=== PATIENT | male | born 1990 | race Caucasian/White ===

== ENCOUNTER 2025-06-15 13:58 | Emergency (ER) | payer BC, SELFPAY ==
[2025-06-15 14:00] VITALS: BP 146/101
--- NOTE | 2025-06-15 15:18 | ED.GENMED ---
History of Present Illness
General
Chief Complaint: Crisis Evaluation
Source: patient
Exam Limitations: none
Time Seen by Provider: 06/15/25 14:10
History of Present Illness
History of Present Illness:
34-year-old male presents anxious. Some depression. Significant situational component. Getting . Had to sell his house. Had to give up his dog. [place]oved to the city. Broke up with his girlfriend this morning. No true suicidal ideation
or plan. Fleeting thoughts when he is extra anxious. Has an appointment Tuesday with psychiatry
Past History
Past History
ED Past Medical History: None
Review of Systems
Review of Systems
All Other Systems: Not applicable
Respiratory: Reports no symptoms
Cardiac: Reports no symptoms
Phy Exam
Physical Exam
Physical Exam:
GENERAL: Alert and oriented in no apparent distress
EYE: Orbits normal.
NECK: Supple, no significant adenopathy.
ENT: Pharynx without erythema
CARDIAC: Regular rate and rhythm without any obvious murmurs.
LUNGS: Clear breath sounds,normal
ABDOMEN: Soft, without focal tenderness or distention
NEUROLOGICAL: Alert and oriented , grossly non-focal
SKIN: Warm and dry, no rash or lesion, no discoloration, skin intact.
MUSCULOSKELETAL: No edema,no deformity.Good color
PSYCH: Normal and appropriate interaction.
Course
Orders/Labs/Results
Orders:
Orders
06/15/25 14:07
1:1 Observation - Suicide/ Violent Behavior As Directed
06/15/25 14:12
Crisis Consult Urgent
Reason for Consult: anxiety/depression
06/15/25 15:17
Alprazolam [Xanax] 0.5 mg PO NOW STA
Vital Signs
Initial and Last Documented VS:
Initial Vital Signs
Temp Pulse Resp BP Pulse Ox
98.3 F 88 18 146/101 97
06/15/25 14:00 06/15/25 14:00 06/15/25 14:00 06/15/25 14:00 06/15/25 14:00
Last Documented Vital Signs
Temp Pulse Resp BP Pulse Ox
98.3 F 88 18 146/101 97
06/15/25 14:00 06/15/25 14:00 06/15/25 14:00 06/15/25 14:00 06/15/25 15:18
MDM/Problems Addressed
Differential Diagnosis Includes:
Medically stable. No acute medical issues. No suicidal plan or ideation. No indication for psychiatric committal. Will give a small dose of benzos. Has follow-up Tuesday. Crisis is in agreement.
*Pulse Oximetry
SaO2: 97
Oxygen Mode of Delivery: Room air
Patient hypoxic: no
*Critical Care Note
Total Time (30-74mins, 75-104mins- exclusive of procedures): Not Applicable
Update Note
Update Note:
Seen by crisis. They are in agreement with management. Very short course of benzos. Follow-up with psychiatry Tuesday as planned. No indication psychiatric committal. Has no plan or intent for suicidal ideation. Patient and mom are comfortable
with this approach
ED Attending Note
-
Portions of this chart may have been created with voice recognition software.� Occasional wrong word or��sound alike� substitutions may have occurred due to the inherent limitations of voice recognition software.
Discharge Plan
Departure
Patient Disposition: Home (Routine Discharge)
Date of Disposition: 06/15/25
Time of Disposition: 15:18
Patient with high blood pressure during this ER visit?: Yes
Discharge Problem:
Anxiety, Situational depression
Instructions: Depression, Adult (DC), Anxiety, Adult (DC), BLOOD PRESSURE
Prescriptions:
New
alprazolam [Xanax] 0.5 mg tablet
0.5 mg PO Q8HPRN PRN (Reason: anxiety) Qty: 7 0RF
Referrals:
UNKNOWN - PT DOES,NOT KNOW [Family Provider]
Activity Restrictions/Additional Instructions:
The prescription was sent to your pharmacy
Follow-up Tuesday with the psychiatrist as directed
As we discussed, return sooner with any worsening symptoms suicidal ideation or plan or any other concerning symptoms
Interventions
Interventions:
*Risk Screen - Suicide Last Done: 06/15/25 14:00
*General Assessment Last Done: 06/15/25 14:00
*Neglect/Abuse Screening Last Done: 06/15/25 14:00
*ED COVID-19 Vaccine History Last Done: 06/15/25 14:00
*Nursing Disposition Last Done: 06/15/25 15:31
ED-Psychological Assessment Last Done: 06/15/25 15:31
Discharge Date and Time
Discharge Date/Time: 06/15/25 15:32
Print Language: COMORAN
[2025-06-15] MEDS: XANAX 0.5 MG PO (15:27)
== END 2025-06-15 15:32 | disposition home or self-care (01) ==
LOC: EMR 13:58
PROVIDERS: EMERGENCY PHYSICIAN Emergency Medicine
DX: F43.21 Adjustment disorder with depressed mood (principal); Z63.0 Problems in relationship with spouse or partner
CPT/HCPCS: 99283